=== PATIENT | female | born 1955 | race Caucasian/White ===

== ENCOUNTER → 2019-09-18 13:02 | Outpatient (CLI) | payer BC, SELFPAY ==
--- NOTE | 2019-09-18 13:11 | XR_ITS ---
PROCEDURE: XR KNEE LT 4V CLINICAL INDICATION: left knee pain COMPARISON: No exams were available for comparison FINDINGS: No fracture or dislocation. No lytic or blastic change. There is normal mineralization. There is minimal osteoarthritic change of the patellofemoral joint and medial compartment. No fracture or dislocation. No lytic or blastic change. Other findings:None. IMPRESSION: Mild osteoarthritis. Dictated by: Jcarlos Askew MD 09/18/2019 14:39 Electronically signed by Jcarlos Askew MD in [place] 09/18/2019 14:39
== END ==
PROVIDERS: PCP Family Medicine; Visit Provider Orthopaedic Surgery
DX: M25.562 Pain in left knee (principal)
CPT/HCPCS: 73564

== ENCOUNTER → 2022-05-16 12:40 | Outpatient (CLI) | payer MEDICARE, SELFPAY ==
--- NOTE | 2022-05-16 12:54 | XR_ITS ---
FINAL REPORT CLINICAL HISTORY: RT SIDED RIB PAIN UNDERNEATH OF BREAST FINDINGS: PA and lateral views of the chest were obtained. There is no prior exam for comparison. The cardiac and mediastinal silhouettes are within normal limits. The lungs are clear. There is no pleural effusion or pneumothorax. No acute osseous abnormality is identified. IMPRESSION: No radiographic evidence of acute cardiac or pulmonary disease. Reviewed, Interpreted and Dictated by Tegan Neves MD Transcribed by Tino Panda Authenticated and [facility]
--- NOTE | 2022-05-16 12:54 | XR_ITS ---
FINAL REPORT CLINICAL HISTORY: RT SIDED RIB PAIN UNDERNEATH OF BREAST FINDINGS: 2 views of the right ribs were obtained. There is no acute fracture. The visualized lungs are clear. No pneumothorax is identified. IMPRESSION: No rib fracture or pneumothorax identified. Reviewed, Interpreted and Dictated by Tegan Neves MD Transcribed by Tino Panda Authenticated and [facility]
== END ==
PROVIDERS: PCP Family Medicine; Visit Provider Family Medicine
DX: R07.81 Pleurodynia (principal)
CPT/HCPCS: 71046; 71100

== ENCOUNTER → 2022-08-19 12:33 | Outpatient (CLI) | payer MEDICARE, SELFPAY ==
--- NOTE | 2022-08-19 12:36 | MM_ITS ---
PROCEDURE INFORMATION: Exam: MG Bilateral Screening 3D Mammography Exam date and time: 08/19/2022 12:56 PM Age: 67 years old Clinical indication: Screening examination TECHNIQUE: Imaging protocol: Bilateral Screening tomosynthesis and 2D mammography including computer-aided detection (CAD) when performed. COMPARISON: No relevant prior studies available. FINDINGS: MAMMOGRAPHY: Breast composition: There are scattered areas of fibroglandular density. Mass: None. Architectural distortion: None. Calcifications: No suspicious calcifications. Asymmetric density: None. Skin thickening: None. Axillary adenopathy: None. IMPRESSION: No mammographic evidence of malignancy. Annual screening is recommended unless otherwise clinically indicated. ASSESSMENT: BI-RADS Category 1: Negative
== END ==
PROVIDERS: PCP Family Medicine; Visit Provider Family Medicine
DX: Z12.31 Encounter for screening mammogram for malignant neoplasm of breast (principal)
CPT/HCPCS: 77063; 77067

== ENCOUNTER 2022-09-28 09:00 | Outpatient (RCR) | payer MEDICARE, SELFPAY ==
--- NOTE | 2022-09-07 10:18 | HMH.PTOPEV ---
PT Outpatient Evaluation Rehab PT Outpatient Evaluation Start: 09/07/22 10:01 Freq: Status: Active Protocol: Document 09/07/22 10:01 AILYNNATE (Rec: 09/07/22 10:18 DENY [id number]) E-signed By Sukhwinder Claros, PT Outpatient Therapy Subjective History Subjective History Patient is a 67 year old female presenting to outpatient PT with reports of chronic LBP with intermittent RLE radicular symptoms of insidious onset starting approx 1.5 years ago. 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 Patient also reports L anterior hip/ groin pain with onset of RLE radicular symptoms. Most recent imaging indicates multi -level degenerative changes and bulging discs. Comorbidities include HTN. Chief Complaint Pain,Stiff Symptom Type Sharp,Shooting Symptoms Relieved By Ice,Prescription Meds Symptoms Aggravated By Standing,Bending/Stooping, Physical Activity,Twisting, Walking,Lifting Prior Functional Limitations None Current Functional Limitations Lifting,Housework,Driving, Sleeping,Standing,Sitting, Walking,Bending/Stooping Symptom Description Intermittent Level of pain today (0-10) 2 Pain scale - at its best (0-10) 0 Pain scale - at its worst (0-10) 5 Lumbopelvic Eval Posture Thoracic Spine Posture Standing Position Increased Kyphosis Lumbar Spine Posture Standing Position Increased Lordosis Assistive device Assistive Devices None / NA Palapation tenderness left Lumbar/Sacral Palpation Findings Tenderness Lumbar/Sacral Palpation Overall Comment L PSIS, upper gluteal mm 3/4 Accessory Movement L3 bilateral L4 bilateral L5 bilateral S1 bilateral Range of Motion Lumbar Spine Active Flexion Range of WNL Motion (degrees) Lumbar Spine Active Extension Range of 14 Motion (degrees) Left Lumbar Spine Lateral Flexion Active 13 Range of Motion (degrees) Right Lumbar Spine Lateral Flexion 16 pain Active Range of Motion (degrees) Lumbar Spine ROM Limitations Soft Tissue Tightness,Bony Restriction Manual Muscle Test Bilateral Knee Extension Strength Grade 5 Normal
== END 2022-09-28 09:05 | disposition home or self-care (01) ==
LOC: PT 09:00
PROVIDERS: PCP Family Medicine; Visit Provider Family Medicine
DX: M54.50 Low back pain, unspecified (principal)
CPT/HCPCS: 97110; 97163

== ENCOUNTER → 2022-10-05 08:56 | Outpatient (POV) | payer MEDICARE, SELFPAY ==
--- NOTE | 2022-10-05 09:01 | EXP.PAIN.OV ---
HPI Data of Consult Patient: new to practice Consult date: 10/05/22 Requesting Physician: Em Smith APRN Primary Care Provider: Jai Shannon MD Consult Narrative Reason for consult: Low back pain History of present illness: Ms. Holguin is a 67 year old female who presents today as a new patient. She is a referral from Dr. Bustos's office. Today she rates her pain a 5 out of 10. Patient states her pain is all in her low back and denies any radiating symptoms into her legs. She does describe this as a sharp sensation feels like it is [id number] rubbing. She states this has been going on for approximately a year and a half and is unrelated to any specific injury or trauma. She states that she was giving her dog a bath when she initially felt her symptoms. Patient has been to multiple sessions of physical therapy with minimal improvement. She does state that she continues to do at home exercising and stretching techniques that she learned in PT since. Patient does also see a chiropractor regularly with some improvement. Patient denies any previous back surgery or injective history. Patient has been prescribed Flexeril 10 mg at bedtime by her primary care doctor and she does state this helps some. Patient also takes [id number] Aleve and does ice daily. Patient has tried Salonpas patches with no additional change. Patient does state it is difficult to perform activities of daily living such as cooking and cleaning due to the pain. She also has difficulty even wiping when going to the restroom and also uses a wedge pillow to help with sleeping due to the pain. Patient is not on any scheduled medications. Her Lex is [id number]. Has been reviewed and appropriate. CC: Em Smith APRN [facility] Disclaimer: The information contained in this section may have been updated after the patient was seen, as this information can be updated by other users. Social History Smoking Status: Current every day smoker alcohol intake: never current occupational status: employed Travel in the last 8 weeks: None Review of Systems Review of Systems Review of systems:: pertinent systems reviewed and negative unless documented below Review of systems (narrative): Review of Systems: General: No recent weight changes, no fever, no sleep disturbances Respiratory: No cough, no shortness of air, no recurring pulmonary infections Cardiovascular/peripheral vascular: No chest pain, no palpitations, no edema, no shortness of breath Gastrointestinal: No new onset incontinence, normal bowel movements reported Genitourinary: No new onset incontinence Musculoskeletal: Lumbar Psychiatric: [Normal mood/affect] Neurological: [Denies weakness in extremities], [denies balance issues] Meds Home Medications and Allergies Home Medications Medication Instructions Recorded Confirmed Type No Known Home Medications 09/18/19 10/09/19 History New Prescriptions to Start Prescriptions: Allergies Allergy/AdvReac Type Severity Reaction Status Date / Time Penicillins Allergy Verified 10/09/19 13:14 Objective Narrative: Physical Exam: General: Alert and oriented x3, no acute distress, pleasant and cooperative Lungs: Respirations even and unlabored, symmetrical chest expansion Eyes: PERRL Musculoskeletal: Flexion and extension of lumbar [spine] somewhat guarded secondary to pain, [antalgic gait noted] positive Kemps test Neurological: Speech clear, no gross sensory deficit Oswestry index score of 25 Additional findings Additional findings: Proscan imaging 07/06/2022 MRI lumbar spine without contrast Findings: Disc desiccation, osteophytes and mild disc bulges are present at all visualized levels. There are prominent Schmorl's nodes in the superior endplates of L3 and L4 to the right of midline and mild contiguous marrow reaction. T11-T12: Mild kyphosis and a slight disc bulge are present. There is no significant spina
[2022-10-05 09:52] VITALS: BP 123/80; PULSE 102; RESP 18; TEMP 36.6; O2SAT 97; BMI 30.3
== END ==
PROVIDERS: PCP Family Medicine; Visit Provider Nurse Practitioner Family
DX: M51.36 Other intervertebral disc degeneration, lumbar region (principal); M47.816 Spondylosis without myelopathy or radiculopathy, lumbar region
CPT/HCPCS: 99202; G0463

== ENCOUNTER 2022-10-11 10:35 | Day surgery (SDC) | payer MEDICARE, SELFPAY ==
[2022-10-11 10:51] VITALS: BP 153/92; PULSE 99; RESP 18; TEMP 36.6; O2SAT 95; BMI 29.8
[2022-10-11 11:00] VITALS: BP 156/89; PULSE 106; RESP 19; O2SAT 94
[2022-10-11 11:01] VITALS: BP 156/89; PULSE 106; RESP 19; O2SAT 94
[2022-10-11 11:09] VITALS: BP 143/71; PULSE 89; RESP 18; O2SAT 95
--- NOTE | 2022-10-11 11:17 | P.PCN_ITS ---
Procedure Date: 10/11/22 Time: 11:00 Anesthesiologist:: Jabari Roque CRNA Complications:: None Pre-procedure Diagnosis:: Degenerative disc lumbar spine multilevels. Lumbar radiculopathy. Lumbar spondylosis. Multilevel lumbar facet arthropathy. Post-procedure Diagnosis:: Same. Indications for Procedure:: Patient is a very pleasant 67-year-old female that comes our clinic today for a bilateral L4-5, L5-S1 facet block/medial branch block. Patient complains of low back pain for the past 15 months. She rates her pain 6/10. She describes her low back pain is constant, dull, aching. Sitting or standing for any length of time is difficult due to low back and bilateral posterior hip pain. Procedure Details:: Informed consent was obtained and the risk and benefits of the procedure was explained to the patient. Patient was taken to the procedure room where noninvasive monitors were placed, including noninvasive blood pressure cuff as well as pulse oximeter. The area over the lumbar spine was cleansed using chlorhexidine as a cleansing solution. I anesthetized the skin and subcutaneous tissues with 1% Lidocaine. I placed 22-gauge spinal needles into the facet joint/ medial branches of L4-L5, and L5-S1 bilaterally. Needle placement was confirmed with fluoroscopy. After confirmation of needle placement, each site was injected with 1 mL of 1% lidocaine and 0.25 % Marcaine and 10 mg of Depo- Medrol. A total of 80 mg of depo medrol was used for bilateral medial branch blocks of L4-L5, and L5-S1 bilaterally. Patient tolerated the procedure without difficulty. There were no complications. Plan and Disposition:: Patient was discharged without incident.
== END 2022-10-11 11:09 | disposition home or self-care (01) ==
LOC: SC.PAINP 10:36
PROVIDERS: PCP Family Medicine; Visit Provider Nurse Anesthetist, Certified Registered
DX: M51.16 Intervertebral disc disorders with radiculopathy, lumbar region (principal); M47.896 Other spondylosis, lumbar region
CPT/HCPCS: 64493; 64494; J1040

== ENCOUNTER → 2022-10-26 13:01 | Outpatient (POV) | payer MEDICARE, SELFPAY ==
--- NOTE | 2022-10-26 13:23 | P.PCN_ITS ---
Procedure Anesthesiologist:: Em Smith APRN Complications:: None
--- NOTE | 2022-10-26 13:23 | EXP.PAIN.PRO ---
Procedure Anesthesiologist:: Em Smith APRN Complications:: None
--- NOTE | 2022-10-26 13:23 | EXP.PAIN.SOA ---
[facility] Pain Management SOAP Note Subjective:: Patient is a pleasant 67-year-old female who presents today for follow-up of lumbar medial branch block bilaterally L4-L5 and L5-S1 on 10/11/2022. We are currently treating the patient for degenerative disc disease of lumbar spine with lumbar radiculopathy symptoms, lumbar facet arthropathy, lumbar spondylosis. Today she rates her pain a 3 out of 10. She states she has had at least 50 to 60% improvement following this injection and feels like it is still providing additional relief. Patient does state that she has been able to move around easier with decreased pain and that she has not even had to use her pillow for positioning at night. Patient states that the pain is no longer a constant sensation and just comes and got worse. Patient is prescribed Flexeril 10 mg at night from her primary care doctor. Her Lex is [id number]. Its been reviewed and appropriate. Review of Systems: General: No recent weight changes, no fever, no sleep disturbances Respiratory: No cough, no shortness of air, no recurring pulmonary infections Cardiovascular/peripheral vascular: No chest pain, no palpitations, no edema, no shortness of breath Gastrointestinal: No new onset incontinence, normal bowel movements reported Genitourinary: No new onset incontinence Musculoskeletal: Low back pain Psychiatric: [Normal mood/affect] Neurological: [Denies weakness in extremities], [denies balance issues] Objective:: Physical Exam: General: Alert and oriented x3, no acute distress, pleasant and cooperative Lungs: Respirations even and unlabored, symmetrical chest expansion Eyes: PERRL Musculoskeletal: Flexion and extension of lumbar [spine] somewhat guarded secondary to pain, [antalgic gait noted] Neurological: Speech clear, no gross sensory deficit Assessment:: Degenerative disc disease of lumbar spine with lumbar radiculopathy symptoms, lumbar facet arthropathy, lumbar spondylosis Plan:: Patient has had significant improvement of her low back pain following her lumbar medial branch block and does not require any additional injective therapy at this time. Patient will return to clinic in 1 month for reevaluation of symptoms and plan of care. Patient has been instructed to contact the clinic with any concerns before the next appointment. Dr. Kaiser has reviewed this note and agrees with this plan of care. This note was dictated using voice recognition software and make contain errors or omissions. [facility] Disclaimer: The information contained in this section may have been updated after the patient was seen, as this information can be updated by other users. Medical History Chronic back pain HTN (hypertension) Surgical History H/O section H/O colonoscopy H/O tubal ligation Hx of tonsillectomy Family History Other Cancer Hypertension Social History Smoking Status: Current every day smoker alcohol intake: never current occupational status: employed Travel in the last 8 weeks: None
[2022-10-26 15:00] VITALS: BP 123/87; PULSE 102; RESP 20; BMI 29.8
== END | disposition home or self-care (01) ==
PROVIDERS: PCP Family Medicine; Visit Provider Nurse Practitioner Family
DX: M51.16 Intervertebral disc disorders with radiculopathy, lumbar region (principal); M47.26 Other spondylosis with radiculopathy, lumbar region
CPT/HCPCS: 99212; G0463

== ENCOUNTER → 2022-11-28 09:13 | Outpatient (POV) | payer MEDICARE, SELFPAY ==
--- NOTE | 2022-11-28 09:49 | EXP.PAIN.SOA ---
[facility] Pain Management SOAP Note Subjective:: Patient is a pleasant 67-year-old female who presents today for 1 month follow-up. We are currently treating the patient for degenerative disc disease of the lumbar spine with lumbar radiculopathy symptoms, lumbar facet arthropathy, lumbar spondylosis. Today she rates her pain a 8 out of 10. Patient denies any new trauma or injury. Patient denies any change location or type of pain she experiences. Patient does feel like over the last week her previous injection from back in September has started to wear off more. She states she is experiencing worsening pain symptoms on a regular basis that does interfere with her ability perform activities of daily living such as cooking and cleaning. Patient does describe this as a aching, throbbing sensation that is worse with increased activity such as bending, lifting or twisting. Previously when she had her first medial branch block she did have approximately 60% improvement or more lasting almost a month and a half. Patient is currently using Flexeril 10 mg at night from her primary care doctor as needed. Her Lex is [id number]. Its been reviewed and appropriate. Review of Systems: General: No recent weight changes, no fever, no sleep disturbances Respiratory: No cough, no shortness of air, no recurring pulmonary infections Cardiovascular/peripheral vascular: No chest pain, no palpitations, no edema, no shortness of breath Gastrointestinal: No new onset incontinence, normal bowel movements reported Genitourinary: No new onset incontinence Musculoskeletal: Low back pain Psychiatric: [Normal mood/affect] Neurological: [Denies weakness in extremities], [denies balance issues] Objective:: Physical Exam: General: Alert and oriented x3, no acute distress, pleasant and cooperative Lungs: Respirations even and unlabored, symmetrical chest expansion Eyes: PERRL Musculoskeletal: Flexion and extension of lumbar [spine] somewhat guarded secondary to pain, [antalgic gait noted] positive Kemps sign Neurological: Speech clear, no gross sensory deficit Assessment:: Degenerative disc disease of lumbar spine with lumbar radiculopathy symptoms, lumbar facet arthropathy, lumbar spondylosis Plan:: Patient is experiencing worsening pain in her low back with limited range of motion. Patient previously had a lumbar medial branch block that provided 60% improvement lasting almost a month and a half. I have discussed with the patient that she may benefit from a second lumbar medial branch block. Risk and benefits were discussed with the patient and she would like to proceed forward with this plan of care. Patient is not on any blood thinners. I will also send in Flexeril 10 mg's and provide a 1 month supply of this medication. Patient will be scheduled for a lumbar medial branch block bilaterally L4-L5 and L5-S1. Patient has been instructed to contact the clinic with any concerns before the next appointment. Dr. Kaiser has reviewed this note and agrees with this plan of care. This note was dictated using voice recognition software and make contain errors or omissions. [facility] Disclaimer: The information contained in this section may have been updated after the patient was seen, as this information can be updated by other users. Medical History Chronic back pain HTN (hypertension) Surgical History H/O section H/O colonoscopy H/O tubal ligation Hx of tonsillectomy Family History Other Cancer Hypertension Social History Smoking Status: Current every day smoker alcohol intake: never current occupational status: other Travel in the last 8 weeks: None
[2022-11-28 09:59] VITALS: BP 145/92; PULSE 89; RESP 18; O2SAT 97; BMI 29.8
== END | disposition home or self-care (01) ==
PROVIDERS: PCP Family Medicine; Visit Provider Nurse Practitioner Family
DX: M51.16 Intervertebral disc disorders with radiculopathy, lumbar region (principal); M47.26 Other spondylosis with radiculopathy, lumbar region
CPT/HCPCS: 99212; G0463

== ENCOUNTER 2022-12-06 10:04 | Day surgery (SDC) | payer MEDICARE, SELFPAY ==
[2022-12-06 10:25] VITALS: BP 135/85; PULSE 85; RESP 16; TEMP 36.6; O2SAT 93; BMI 30.7
[2022-12-06 10:37] VITALS: BP 140/87; PULSE 86; RESP 18; O2SAT 97; O2SAT 98
[2022-12-06 10:40] VITALS: BP 159/86; PULSE 78; RESP 18; O2SAT 94
--- NOTE | 2022-12-06 10:40 | P.PCN_ITS ---
Procedure Date: 12/06/22 Time: 10:20 Anesthesiologist:: Jabari Roque CRNA Complications:: None Pre-procedure Diagnosis:: Degenerative disc lumbar spine multilevels. Lumbar radiculopathy. Lumbar spondylosis. Multilevel lumbar facet arthropathy. Post-procedure Diagnosis:: Same. Indications for Procedure:: Patient is a very pleasant 67-year-old female comes today for a repeat L4-5, L5- S1 bilateral medial branch blocks/facet injections. Patient reports 3 to 4 weeks of moderate significant improvement terms of her overall low back pain with her first round of injections at the same levels. Patient states she has difficulty with standing for any length of time. Difficulty with flexion, extension, left and right rotation. She rates her pain 7/10. Procedure Details:: Informed consent was obtained and the risk and benefits of the procedure was explained to the patient. Patient was taken to the procedure room where noninvasive monitors were placed, including noninvasive blood pressure cuff as well as pulse oximeter. The area over the lumbar spine was cleansed using chlorhexidine as a cleansing solution. I anesthetized the skin and subcutaneous tissues with 1% Lidocaine. I placed 22-gauge spinal needles into the facet joint/ medial branches of L4-L5, and L5-S1] bilaterally. Needle placement was confirmed with fluoroscopy. After confirmation of needle placement, each site was injected with 1 mL of 1% lidocaine and 0.25 % Marcaine and 10 mg of Depo- Medrol. A total of 80 mg of depo medrol was used for bilateral medial branch blocks of L4-L5, and L5-S1] bilaterally. Patient tolerated the procedure without difficulty. There were no complications. Plan and Disposition:: Patient was discharged without incident.
== END 2022-12-06 10:40 | disposition home or self-care (01) ==
PROVIDERS: PCP Family Medicine; Visit Provider Nurse Anesthetist, Certified Registered
DX: M47.896 Other spondylosis, lumbar region (principal); M51.16 Intervertebral disc disorders with radiculopathy, lumbar region
CPT/HCPCS: 64493; 64494; J1040

== ENCOUNTER → 2023-05-08 09:53 | Outpatient (POV) | payer MEDICARE, SELFPAY ==
[2023-05-08 10:23] VITALS: BP 151/93; PULSE 107; RESP 18; O2SAT 94; BMI 30.7
--- NOTE | 2023-05-08 10:23 | EXP.PAIN.SOA ---
[facility] Pain Management SOAP Note Subjective:: Patient is a pleasant 68-year-old female who presents today for follow-up. We are currently treating the patient for degenerative disc disease of lumbar spine with lumbar radiculopathy symptoms, lumbar facet arthropathy, lumbar spondylosis. Today she rates her pain an 8 out of 10. Patient denies any new trauma or injury. Patient has had 2 diagnostic lumbar medial branch blocks that with her first injection provided 60% improvement lasting approximately a month and a half. Patient did get approximately 65 to 70% with the second block lasting approximately 1 month. Patient does state that she is back to her baseline today and describes it as an aching, throbbing sensation that is worse with certain movements such as bending twisting or lifting. Patient is interested in proceeding forward with the lumbar RFA however this had to be put on hold over the last few months because she ended up having eye surgery and her was hospitalized. Patient does state today that she would like to proceed forward. Patient states her pain does interfere with her ability perform activities of daily living such as cooking and cleaning. Patient has tried and failed conservative treatment such as oral medications, heat and ice, topicals, at home exercising and stretching for longer than 12 weeks. Patient is currently managed with Flexeril 10 mg at night by her PCP. Her Lex has been reviewed and is appropriate. Review of Systems: General: No recent weight changes, no fever, no sleep disturbances Respiratory: No cough, no shortness of air, no recurring pulmonary infections Cardiovascular/peripheral vascular: No chest pain, no palpitations, no edema, no shortness of breath Gastrointestinal: No new onset incontinence, normal bowel movements reported Genitourinary: No new onset incontinence Musculoskeletal: Low back pain Psychiatric: [Normal mood/affect] Neurological: [Denies weakness in extremities], [denies balance issues] Objective:: Physical Exam: General: Alert and oriented x3, no acute distress, pleasant and cooperative Lungs: Respirations even and unlabored, symmetrical chest expansion Eyes: PERRL Musculoskeletal: Flexion and extension of lumbar [spine] somewhat guarded secondary to pain, [antalgic gait noted] positive Kemps test Neurological: Speech clear, no gross sensory deficit Assessment:: Degenerative disc disease of lumbar spine with lumbar radiculopathy symptoms, lumbar spondylosis, multilevel lumbar facet arthropathy Plan:: Patient is experiencing worsening pain in her low back with limited range of motion and a positive Kemps test. I have discussed the risk and benefits of the lumbar RFA. Patient would like to proceed forward with this plan of care. Patient is not on any blood thinners. Patient did have 2 successful lumbar medial branch blocks with 60% the first injection and 65 to 70% with the second block lasting approximately a month to a month and a half with each 1. Patient will be scheduled for a lumbar RFA bilaterally L4-L5 and L5-S1. This injection will be done under fluoroscopic guidance to confirm accuracy and safety. Patient has been instructed to contact the clinic with any concerns before the next appointment. Dr. Kaiser has reviewed this note and agrees with this plan of care. This note was dictated using voice recognition software and make contain errors or omissions. [facility] Disclaimer: The information contained in this section may have been updated after the patient was seen, as this information can be updated by other users. Medical History Chronic back pain HTN (hypertension) Surgical History H/O section H/O colonoscopy H/O tubal ligation Hx of tonsillectomy Family History Other Cancer Hypertension Social History Smoking Status: Current every day smoker alcohol intake: never current occupational status: other Travel in the last 8 weeks: None
== END ==
LOC: SC.PAIN 09:54
PROVIDERS: PCP Family Medicine; Visit Provider Nurse Practitioner Family
DX: M51.16 Intervertebral disc disorders with radiculopathy, lumbar region (principal); M47.26 Other spondylosis with radiculopathy, lumbar region
CPT/HCPCS: 99212; G0463

== ENCOUNTER 2023-05-23 08:44 | Day surgery (SDC) | payer MEDICARE, SELFPAY ==
[2023-05-23 08:55] VITALS: BP 166/89; PULSE 104; RESP 16; TEMP 36.5; O2SAT 97; BMI 30.7
[2023-05-23] MEDS: BUPIVACAINE 0.25% 10ML INJ 25 MG IJ (09:15)
[2023-05-23] MEDS: LIDOCAINE 1% 5ML PF VIAL 15 ML (09:16)
[2023-05-23 09:20] VITALS: BP 139/82; PULSE 94; RESP 18; O2SAT 96
[2023-05-23] MEDS: methylPREDNISolone ACETATE 80MG/ML VIAL 80 MG (09:20)
[2023-05-23 09:23] VITALS: BP 152/101; PULSE 97; RESP 16; O2SAT 97
--- NOTE | 2023-05-23 09:25 | P.PCN_ITS ---
Procedure Date: 05/23/23 Time: 09:00 Anesthesiologist:: Jabari Roque CRNA Complications:: None Pre-procedure Diagnosis:: Degenerative disc lumbar spine multilevels. Lumbar radiculopathy. Lumbar facet arthropathy. Lumbar spondylosis. Post-procedure Diagnosis:: Same. Indications for Procedure:: Patient is a very pleasant 68-year-old female who presents today for radiofrequency ablation lumbar L4-5, L5-S1 bilaterally. Patient responded very well to nerve blocks at the same levels x 2. Patient reports difficulty with standing for any length of time. Difficulty sitting for any length of time. Difficulty transitioning from sitting to standing. Difficulty with flexion, extension, left and right rotation. She rates her pain 8/10. Procedure Details:: Informed consent was obtained and the risk and benefits of the procedure was exp lained to the patient. Patient was placed prone on the procedure table. The patient was prepped and draped in sterile fashion. C-arm fluoroscopy was used to view the lumbar spine. The skin and subcutaneous tissues were anesthetized using lidocaine. I placed 20-gauge RF needles into the facet joints of L3-L4, L4-L5 and L5-S1 on the left side. We underwent sensory stimulation. There is good sensory stimulation at 0.8 V. We underwent motor stimulation. There is no motor stimulation at 2 V. We then anesthetized these levels with lidocaine and Depo- Medrol. I used a total of 40 mg Depo-Medrol for all 3 levels. I then burned all 3 levels of L3-L4, L4-5 and L5-S1 on the left side for 4 minutes at 80 ?C. This process was then repeated on the right side. Patient tolerated the procedure well with no complication. Plan and Disposition:: Patient was discharged without incident.
[2023-05-23 09:27] VITALS: BP 139/82; PULSE 94; RESP 18; O2SAT 96
== END 2023-05-23 09:23 | disposition home or self-care (01) ==
PROVIDERS: PCP Family Medicine; Visit Provider Nurse Anesthetist, Certified Registered
DX: M51.16 Intervertebral disc disorders with radiculopathy, lumbar region (principal); M47.816 Spondylosis without myelopathy or radiculopathy, lumbar region
CPT/HCPCS: 64635; 64636; J1040

== ENCOUNTER → 2023-06-09 09:42 | Outpatient (POV) | payer MEDICARE, SELFPAY ==
[2023-06-09 12:31] VITALS: RESP 18; BMI 30.4
--- NOTE | 2023-06-09 12:38 | A.OFFVIS_ITS ---
[facility] Pain Management SOAP Note Subjective:: Patient is a pleasant 68-year-old female who presents today for follow-up of lumbar RFA on 05/23/2023. We are currently treating the patient for degenerative disc disease of lumbar spine with lumbar radiculopathy symptoms, lumbar facet arthropathy, lumbar spondylosis. Today she rates her pain a 7 out of 10. Patient states that she only had improvement for a couple of days and then her pain went back to its baseline. Patient does state her pain continues to be there in her low back in 1 specific spot along the left side. Patient states the pain can send sharp shooting pains and that it is worse with certain movements such as bending twisting or lifting. Patient did have 2 successful blocks with each 1 lasting over a month to a month and then a half and providing upwards of 60 to 70% relief. Patient states that she did have imaging done previously at [facility] at [place]. Patient has tried and failed conservative treatment such as oral medication, heat and ice, topicals, at home exercising and stretching for longer than 12 weeks. Patient is currently prescribed Flexeril 10 mg at night from her primary care provider. Her Lex has been reviewed and is appropriate. Review of Systems: General: No recent weight changes, no fever, no sleep disturbances Respiratory: No cough, no shortness of air, no recurring pulmonary infections Cardiovascular/peripheral vascular: No chest pain, no palpitations, no edema, no shortness of breath Gastrointestinal: No new onset incontinence, normal bowel movements reported Genitourinary: No new onset incontinence Musculoskeletal: Low back pain Psychiatric: [Normal mood/affect] Neurological: [Denies weakness in extremities], [denies balance issues] Objective:: Physical Exam: General: Alert and oriented x3, no acute distress, pleasant and cooperative Lungs: Respirations even and unlabored, symmetrical chest expansion Eyes: PERRL Musculoskeletal: Flexion and extension of lumbar [spine] somewhat guarded secondary to pain, [antalgic gait noted] positive Kemps test Neurological: Speech clear, no gross sensory deficit [facility] 07/06/2022 Lumbar MRI without contrast Findings: Disc desiccation, osteophytes, mild disc bulges are present at all visualized levels. There are prominent Schmorl's nodes in the superior endplates of L3 and L4 to the right of midline with mild continuous marrow reaction T11-12: Mild kyphosis and a slight disc bulge present T12-L1: Slight disc bulge without spinal stenosis or neuroforaminal encroachment L1-2: Disc bulge present without significant stenosis or neuroforaminal encroachment L2-3: Mild disc bulge present without spinal stenosis or neuroforaminal encroachment L3-4: Mild disc bulge with mild facet hypertrophy present. Mild narrowing of the thecal sac and superior right subarticular zone. No significant neuroforaminal encroachment L4-5: Mild disc bulge with mild facet hypertrophy present. Mild narrowing of the neural foramina, thecal sac and superior subarticular zones L5-S1: Severe disc space narrowing, mild retrolisthesis, Modic 1 fibrovascular endplate changes, mild vacuum phenomenon in the disc, anterior annular fissure, mild disc bulge, mild facet hypertrophy are present. Mild to moderate bilateral neuroforaminal narrowing without central canal stenosis. There is irregular somewhat linear decreased signal in the anterior inferior aspect of the L5 vertebral body which may be related to an old fracture line. Similar but more subtle changes are present in the anterior superior aspect of S1 Assessment:: Degenerative disc disease of lumbar spine with lumbar radiculopathy symptoms, lumbar facet arthropathy, lumbar spondylosis Plan:: Patient continues to experience significant pain in her low back. I have discussed with the patient that I will reach out to [facility] in [place] and see if we can get a copy of her imaging. I will order the patient a compounded cream we will plan on seeing her back in 2 weeks. Patient may be a beneficial candidate of a future Intracept procedure. Patient will return to clinic in 2 weeks for reevaluation of symptoms and plan of care. Patient has been instructed to contact the clinic with any concerns before the next appointment. Dr. Kaiser has reviewed this note and agrees with this plan of care. This note was dictated using voice recognition software and make contain errors or omissions. [facility] Disclaimer: The information contained in this section may have been updated after the patient was seen, as this information can be updated by other users. Medical History Chronic back pain HTN (hypertension) Surgical History H/O section H/O colonoscopy H/O tubal ligation Hx of tonsillectomy Family History Other Cancer Hypertension Social History Smoking Status: Current every day smoker alcohol intake: never current occupational status: retired Travel in the last 8 weeks: None
== END ==
LOC: SC.PAIN 09:43
PROVIDERS: PCP Family Medicine; Visit Provider Nurse Practitioner Family
DX: M51.16 Intervertebral disc disorders with radiculopathy, lumbar region (principal); M47.26 Other spondylosis with radiculopathy, lumbar region
CPT/HCPCS: 99212; G0463

== ENCOUNTER → 2023-06-22 10:28 | Outpatient (POV) | payer MEDICARE, SELFPAY ==
--- NOTE | 2023-06-22 12:35 | EXP.PAIN.SOA ---
[facility] Pain Management SOAP Note Subjective:: Patient is a pleasant 68-year-old female who presents today for follow-up. We are currently treating the patient for degenerative disc disease of lumbar spine with lumbar facet arthropathy, lumbar spondylosis. Today she rates her pain a 7 out of 10. Patient denies any new trauma or injury. She states she continues to have pain there at her low back without any radiating symptoms into her legs. Patient did previously have 2 successful lumbar medial branch blocks with them lasting upwards of 60 to 70% relief ranging from a month to a month and a half improvement. Patient did have her lumbar RFA back at the end of April however it did not provide significant relief. Patient continues to state that this pain interferes with her ability perform activities of daily living such as cooking and cleaning. At her last visit we did send her a compounded cream. She states that this is helping. Her Lex has been reviewed and is appropriate. Review of Systems: General: No recent weight changes, no fever, no sleep disturbances Respiratory: No cough, no shortness of air, no recurring pulmonary infections Cardiovascular/peripheral vascular: No chest pain, no palpitations, no edema, no shortness of breath Gastrointestinal: No new onset incontinence, normal bowel movements reported Genitourinary: No new onset incontinence Musculoskeletal: Low back pain Psychiatric: [Normal mood/affect] Neurological: [Denies weakness in extremities], [denies balance issues] Objective:: Physical Exam: General: Alert and oriented x3, no acute distress, pleasant and cooperative Lungs: Respirations even and unlabored, symmetrical chest expansion Eyes: PERRL Musculoskeletal: Flexion and extension of lumbar [spine] somewhat guarded secondary to pain, [antalgic gait noted] positive Kemps test Neurological: Speech clear, no gross sensory deficit Assessment:: Degenerative disc disease of lumbar spine with lumbar facet arthropathy, lumbar spondylosis Plan:: Patient continues to experience significant pain in her low back with limited range of motion and a positive Kemps test. I have discussed with the patient that she may be a beneficial candidate of the Intracept procedure which does do an ablation to the basal vertebral nerve. I have counseled the patient that I will reach out to the underwriting sales representative for this company to get a brochure for her for her next visit and I will discuss with Dr. Kaiser regarding when that we will start doing this procedure here at the [place] location. Patient does state that she would prefer it to be done here at this hospital. Patient will return to clinic in 1 month for reevaluation of symptoms and plan of care. Patient has been instructed to contact the clinic with any concerns before the next appointment. Dr. Kaiser has reviewed this note and agrees with this plan of care. This note was dictated using voice recognition software and make contain errors or omissions. [facility] Disclaimer: The information contained in this section may have been updated after the patient was seen, as this information can be updated by other users. Medical History Chronic back pain HTN (hypertension) Surgical History H/O section H/O colonoscopy H/O tubal ligation Hx of tonsillectomy Family History Other Cancer Hypertension Social History Smoking Status: Current every day smoker alcohol intake: never current occupational status: retired Travel in the last 8 weeks: None
[2023-06-22 12:38] VITALS: BP 150/85; PULSE 116; RESP 18; O2SAT 95; BMI 29.7
== END ==
LOC: SC.PAIN 10:28
PROVIDERS: PCP Family Medicine; Visit Provider Nurse Practitioner Family
DX: M51.36 Other intervertebral disc degeneration, lumbar region (principal); M47.816 Spondylosis without myelopathy or radiculopathy, lumbar region
CPT/HCPCS: 99212; G0463

== ENCOUNTER 2023-07-13 08:38 | Outpatient (CLI) | payer MEDICARE, SELFPAY ==
--- NOTE | 2023-07-13 | CA_ITS ---
APPROVED REPORT EXAM: Comprehensive 2D, Doppler, and color-flow Echocardiogram Custom Ski Maker: Heather Aguilar CRT Ht: 5 ft 6 in Wt: 190lbs BSA: 1.96 BP: 130/80 mmHg Indications: Murmur, Hypertension/HDD, Smoker 2D Dimensions LA Volume 49.80 mL LA Volume Index 24.90 mL/m2 (M/F) 16-34 M-Mode Dimensions RVDd 2.91 cm (0.9-2.6) LA Diam 3.40 cm (1.9-4.0) LVDd 4.21 cm (3.5-5.7) LVDs 3.08 cm (3.5-5.7) IVSd 1.84 cm (0.6-1.1) PWd 0.60 cm (0.6-1.1) EF (Teich) 52.80% FS 26.80% EDV (Teich) 79.00 mL TAPSE 1.57 (<1.7) ESV (Teich) 37.30 mL LV Diastology E Decel Time 123 (160-240 msec) E/A Ratio 0.61 MED A' 13.10 cm/s LAT A' 14.10 cm/s Aortic Valve AO Peak GR. 9.30 mmHg Mitral Valve MV A Velocity 113.0 (40-130 cm/s) E/A Ratio 0.61 Pulmonary Valve PV Peak Velocity 161.0 (50-150 cm/s) Tricuspid Valve TR P. Velocity 174.00 cm/s RAP Estimate 10.00 mmHg RVSP 22.20 mmHg Left Ventricle The left ventricle is normal size. The left ventricular systolic function is normal. The left ventricular ejection fraction is within the normal range. There is increased LV wall thickness. There is normal LV segmental wall motion. Transmitral Doppler flow pattern suggests impaired LV relaxation. LVEF is 55%. Right Ventricle The right ventricle is normal size. The right ventricular systolic function is normal. Atria The left atrium size is normal. The right atrium size is normal. There is no Doppler evidence of interatrial shunt. Aortic Valve Aortic valve is mildly thickened. Trace aortic regurgitation. There is no aortic valvular stenosis. Mitral Valve The mitral valve is normal in structure. No evidence of mitral valve stenosis. Trace mitral regurgitation. Tricuspid Valve The tricuspid valve leaflets are thin and pliable. Trace tricuspid regurgitation. There is insufficient TR jet to estimate RVSP. Pulmonic Valve The pulmonary valve is grossly normal in structure. Trace pulmonic regurgitation. Great Vessels The aortic root is normal in size. There is mild dilation of the ascending aorta, measuring 3.9 cm in diameter. IVC is normal in size and collapses >50% with inspiration. Pericardium There is no pericardial effusion. Conclusion Normal biventricular systolic function. No significant valvular stenosis or regurgitation. There is mild dilation of the ascending aorta, measuring 3.9 cm in diameter. Electronically signed by : Olivia Ramirez MD 07/17/2023 11:10:06
--- NOTE | 2023-07-13 | CA_ITS ---
FINAL REPORT TECHNIQUE: Color Doppler, duplex Doppler and bailey scale sonography of the bilateral neck arterial vasculature was performed. Velocities were measured in the carotid arteries. Stenosis evaluation based on the validated velocity criteria. CLINICAL HISTORY: Smoker, HTN, Murmur FINDINGS: The peak systolic velocity of the right common carotid artery is 138 cm/s. The peak systolic velocity of the right internal carotid artery is 76 cm/s and end diastolic velocity 34 cm/s. The ICA/CCA ratio is 0.88. A small amount of plaque is present. The right external carotid artery is patent. The right vertebral artery is patent with antegrade flow. The peak systolic velocity of the left common carotid artery is 73 cm/s. The peak systolic velocity of the left internal carotid artery is 83 cm/s and end diastolic velocity 35 cm/s. The ICA/CCA ratio is 1.1. A small amount of plaque is present. The left external carotid artery is patent.The left vertebral artery is patent with antegrade flow. IMPRESSION: Less than 50% bilateral carotid stenoses. Bilateral patent vertebral arteries with antegrade flow. If indicated, CTA or MRA could further evaluate. Reviewed, Interpreted and Dictated by Remington Farooq III, MD Transcribed by Lilo Jones Authenticated and [facility]
== END 2023-07-13 23:59 ==
LOC: RT 08:39
PROVIDERS: PCP Family Medicine; Visit Provider Family Medicine
DX: R09.89 Other specified symptoms and signs involving the circulatory and respiratory systems (principal); I35.8 Other nonrheumatic aortic valve disorders; R01.1 Cardiac murmur, unspecified
CPT/HCPCS: 93306; 93880

== ENCOUNTER 2023-07-24 09:23 | Outpatient (POV) | payer MEDICARE, SELFPAY ==
[2023-07-24 09:31] VITALS: BP 129/86; PULSE 100; RESP 18; O2SAT 98; BMI 30.7
--- NOTE | 2023-07-24 09:48 | EXP.PAIN.SOA ---
[facility] Pain Management SOAP Note Subjective:: Patient is a pleasant 68-year-old female who presents today for 1 month follow-up. Today she rates her pain a 7 out of 10. Patient denies any new trauma or injury. Patient does states she continues to have pain there in her low back and denies any radiating symptoms into her legs. At our last visit we did discuss the Intracept procedure and she was interested possibly in this option. Patient states she continues to use her compounded cream however it does feel deeper and it only eases the pain down. Patient states that she still will have sudden sharp pains with certain positioning that does interfere with her ability perform activities of her daily living. Patient did have 2 successful lumbar medial branch blocks providing 60 to 70% relief and lasting a month to month and a half however the RFA in April did not do as well. Her Lex has been reviewed and is appropriate. Review of Systems: General: No recent weight changes, no fever, no sleep disturbances Respiratory: No cough, no shortness of air, no recurring pulmonary infections Cardiovascular/peripheral vascular: No chest pain, no palpitations, no edema, no shortness of breath Gastrointestinal: No new onset incontinence, normal bowel movements reported Genitourinary: No new onset incontinence Musculoskeletal: Low back pain Psychiatric: [Normal mood/affect] Neurological: [Denies weakness in extremities], [denies balance issues] Objective:: Physical Exam: General: Alert and oriented x3, no acute distress, pleasant and cooperative Lungs: Respirations even and unlabored, symmetrical chest expansion Eyes: PERRL Musculoskeletal: Flexion and extension of lumbar [spine] somewhat guarded secondary to pain, [antalgic gait noted] Neurological: Speech clear, no gross sensory deficit Assessment:: Degenerative disc disease of lumbar spine with lumbar facet arthropathy and lumbar spondylosis Plan:: I have counseled the patient that I have not gotten any updated information regarding the Intracept procedure. I will reach back out to insurance claims representative to get brochures regarding this option. I have also discussed with the patient that I will send in a month supply of Tylenol 3 twice a day as needed. Patient will return to clinic in 1 month for reevaluation of symptoms and plan of care. Risks and benefits of the medication have been explained in detail to the patient. The patient does understand the risk of dependence on the medication when given over a prolonged period. Patient has been advised of risks of oversedation with the prescribed medication. Narcan has been offered to the paitent in the event of oversedation. Patient has been advised that a family member should also be educated regarding administration of Narcan. The patient has been advised to consult with his/her primary care provider and pharmacist regarding drug-drug interaction of medications currently prescribed. Patient has been prescribed a controlled substance after being counseled on the medication, medication safety, and possible side effects. Opioid contract was reviewed and signed by the patient, and that they have agreed to all of the terms set forth by our compliance program. Patient has been instructed to contact the clinic with any concerns before the next appointment. Dr. Kaiser has reviewed this note and agrees with this plan of care. This note was dictated using voice recognition software and make contain errors or omissions. [facility] Disclaimer: The information contained in this section may have been updated after the patient was seen, as this information can be updated by other users. Medical History Chronic back pain HTN (hypertension) Surgical History H/O section H/O tubal ligation H/O colonoscopy Hx of tonsillectomy Family History Other Cancer Hypertension Social History Smoking Status: Current every day smoker alcohol intake: never current occupational status: other Travel in the last 8 weeks: None
== END 2023-07-24 23:59 | disposition home or self-care (01) ==
PROVIDERS: PCP Family Medicine; Visit Provider Nurse Practitioner Family
DX: M51.36 Other intervertebral disc degeneration, lumbar region (principal); M47.816 Spondylosis without myelopathy or radiculopathy, lumbar region
CPT/HCPCS: 99212; G0463

== ENCOUNTER 2023-08-17 10:25 | Outpatient (CLI) | payer MEDICARE, SELFPAY ==
[2023-08-17 11:25] LABS: Blood Urea Nitrogen 20 mg/dl (7-17); Estimated Glomerular Filt Rate 71 ml/min (>60); GFR (African American) 86 ML/MIN (>60)
== END 2023-08-17 23:59 | disposition home or self-care (01) ==
LOC: LAB 10:27
PROVIDERS: PCP Family Medicine; Visit Provider Family Medicine
DX: Z01.818 Encounter for other preprocedural examination (principal)
CPT/HCPCS: 36415; 82565; 84520

== ENCOUNTER 2023-08-21 09:08 | Outpatient (CLI) | payer MEDICARE, SELFPAY ==
--- NOTE | 2023-08-21 09:13 | CT_ITS ---
FINAL REPORT TECHNIQUE: Axial CT with contrast with 3-D MIP reconstruction CLINICAL HISTORY: AORTIC DILATION COMPARISON: None FINDINGS: Pulmonary vessels enhance in normal fashion without evidence of embolism. The thoracic aorta is at the upper limits of normal in size. The aortic sinus and mid ascending aorta measures 39 mm in diameter, while the descending aorta measures 26 mm in diameter. No pulmonary mass or infiltrate is present. Minimal dependent atelectasis is present. There is no significant pleural effusion. There is no significant pericardial effusion. No mediastinal or hilar adenopathy is present. There is fatty infiltration of the liver present. IMPRESSION: Thoracic aorta is at the upper limits of normal in size as described above. No dissection is seen. Fatty infiltration of the liver. Reviewed, Interpreted and Dictated by Jai Lima MD Transcribed by Nkechi Griffin Authenticated and [facility]
[2023-08-21] MEDS: 0.9 % SODIUM CHLORIDE 50 ML VIAL IV (09:47)
[2023-08-21] MEDS: SODIUM CHLORIDE 0.9% 10ML SYR (RAD ONLY) 10 ML IV (09:47)
[2023-08-21] MEDS: IOPAMIDOL-370 (76%);100ML BOTTLE 100 ML IV (09:47)
== END 2023-08-21 23:59 | disposition home or self-care (01) ==
LOC: RAD 09:08
PROVIDERS: PCP Family Medicine; Visit Provider Family Medicine
DX: I77.819 Aortic ectasia, unspecified site (principal)
CPT/HCPCS: 71275; Q9967

== ENCOUNTER 2023-08-23 09:09 | Outpatient (POV) | payer MEDICARE, SELFPAY ==
[2023-08-23 09:26] VITALS: BP 170/97; PULSE 91; RESP 16; O2SAT 98; BMI 30.7
--- NOTE | 2023-08-23 11:18 | EXP.PAIN.SOA ---
[facility] Pain Management SOAP Note Subjective:: Patient is a pleasant 68-year-old female who presents today for follow-up. Today she rates her pain an 8 out of 10. Patient denies any new trauma or injury. She states she continues to have chronic low back pain as well as her right hip. Patient states that she continues to go to the chiropractor however they have basically done as much as they could for this joint. Patient states that she feels like she is almost at a loss due to not having improvement with the lumbar RFA however continuing to spend money for visits without getting any additional relief. Patient states that she is not interested in a hip replacement or back surgery however she would like something that provides longer relief on a regular basis. Patient has been tried on compounded cream and Tylenol 3. Her Lex has been reviewed and is appropriate. Review of Systems: General: No recent weight changes, no fever, no sleep disturbances Respiratory: No cough, no shortness of air, no recurring pulmonary infections Cardiovascular/peripheral vascular: No chest pain, no palpitations, no edema, no shortness of breath Gastrointestinal: No new onset incontinence, normal bowel movements reported Genitourinary: No new onset incontinence Musculoskeletal: Low back pain, right hip pain Psychiatric: [Normal mood/affect] Neurological: [Denies weakness in extremities], [denies balance issues] Objective:: Physical Exam: General: Alert and oriented x3, no acute distress, pleasant and cooperative Lungs: Respirations even and unlabored, symmetrical chest expansion Eyes: PERRL Musculoskeletal: Flexion and extension of lumbar [spine] somewhat guarded secondary to pain, [antalgic gait noted] Neurological: Speech clear, no gross sensory deficit Assessment:: Degenerative disc disease of lumbar spine with lumbar facet arthropathy, lumbar spondylosis, right hip pain Plan:: I have discussed with the patient that she may benefit from a possible pain pump trial or spinal cord stimulator trial for more prolonged relief on a regular basis. Risk and benefits and educational handouts were given during today's visit. I did also review over risk and benefits of a right hip intra-articular injection. I have counseled her that she can call our office between now and her next visit if she wishes to proceed forward with a right hip intra-articular injection. I have also discussed with the patient that it may be beneficial to see an orthopedic provider for her right hip for possible intervention as well as a neurosurgeon just to see whether or not what recommendations they had. We will follow-up with this at future visits. Patient will contact us for her next follow-up. Patient has been instructed to contact the clinic with any concerns before the next appointment. Dr. Kaiser has reviewed this note and agrees with this plan of care. This note was dictated using voice recognition software and make contain errors or omissions. [facility] Disclaimer: The information contained in this section may have been updated after the patient was seen, as this information can be updated by other users. Medical History Chronic back pain HTN (hypertension) Surgical History H/O section H/O tubal ligation H/O colonoscopy Hx of tonsillectomy Family History Other Cancer Hypertension Social History Smoking Status: Current every day smoker alcohol intake: never current occupational status: other Travel in the last 8 weeks: None
== END 2023-08-23 23:59 | disposition home or self-care (01) ==
LOC: SC.PAIN 09:10
PROVIDERS: PCP Family Medicine; Visit Provider Nurse Practitioner Family
DX: M51.36 Other intervertebral disc degeneration, lumbar region (principal); M47.816 Spondylosis without myelopathy or radiculopathy, lumbar region; M25.551 Pain in right hip
CPT/HCPCS: 99212; G0463

== ENCOUNTER 2024-03-07 08:17 | Outpatient (CLI) | payer MEDICARE, SELFPAY ==
--- NOTE | 2024-03-07 08:36 | MM_ITS ---
PROCEDURE INFORMATION: Exam: MG Bilateral Screening 3D Mammography Exam date and time: 03/07/2024 8:22 AM Age: 68 years old Clinical indication: Screening mammogram TECHNIQUE: Imaging protocol: Bilateral Screening tomosynthesis and 2D mammography including computer-aided detection (CAD) when performed. COMPARISON: 08/19/2022 FINDINGS: MAMMOGRAPHY: Breast composition: There are scattered areas of fibroglandular density. Mass: None. Architectural distortion: No new or suspicious architectural distortion. Calcifications: Stable benign-appearing calcifications are present. No new or suspicious cluster of microcalcifications have developed. Asymmetric density: No new or suspicious asymmetric density is present Skin thickening: None. Axillary adenopathy: None. IMPRESSION: No mammographic evidence of malignancy. Recommend annual screening mammography unless otherwise clinically indicated. ASSESSMENT: BI-RADS category 2: Benign.
--- NOTE | 2024-03-07 08:36 | XR_ITS ---
FINAL REPORT TECHNIQUE: Bone mineral density was calculated of the lumbar spine and hip. CLINICAL HISTORY: .OSTEOPENIA COMPARISON: None FINDINGS: Using L1-4, the bone mineral density of the spine is 0.854 g/cm2, corresponding to T-score of -1.8. Using the left hip, the bone mineral density of the femoral neck is 0.740 g/cm2, corresponding to a T-score of -1.0. Using the right hip, the bone mineral density of the femoral neck is 0.737 g/cm?, corresponding to a T-score of -1.0. NOTE: T-score: Standard deviation compared with peak bone mass of young adult mean. *Following the recommendations of the International Society of Bone densitometry, classification of hip BMD is based on the lower of two T-scores; total hip or femoral neck. IMPRESSION: Diminished bone mineral density of the lumbar spine consistent with low bone density. Normal bone mineral density of the bilateral hips. Reviewed, Interpreted and Dictated by Remington Farooq III, MD Transcribed by Nkechi Griffin Authenticated and [facility]
== END 2024-03-07 23:59 | disposition home or self-care (01) ==
LOC: RAD 08:18
PROVIDERS: PCP Family Medicine; Visit Provider Family Medicine
DX: Z12.31 Encounter for screening mammogram for malignant neoplasm of breast (principal); M85.80 Other specified disorders of bone density and structure, unspecified site; N60.19 Diffuse cystic mastopathy of unspecified breast
CPT/HCPCS: 77063; 77067; 77080

== ENCOUNTER 2024-05-14 17:18 | Emergency (ER) | payer MEDICARE, SELFPAY ==
[2024-05-14 18:29] VITALS: BP 133/83; PULSE 98; RESP 18; TEMP 36.9; O2SAT 97; BMI 31.6
[2024-05-14] MEDS: TET/DIPHTH/PERT-ADULT 0.5ML SYRINGE 0.5 ML IM (18:40)
--- NOTE | 2024-05-14 18:59 | ED_ITS ---
Discharge Plan Disposition Patient Disposition: Home, Self-Care Condition: Good Prescriptions Prescriptions: New clindamycin HCl 300 mg capsule 300 mg PO Q8H 7 Days Qty: 21 0RF sulfamethoxazole-trimethoprim [Bactrim DS] 800-160 mg Tablet 1 tab PO BID 7 Days Qty: 14 0RF mupirocin 2 % ointment 1 applic topical TID 7 Days Qty: 15 0RF No Action Sutab 1.479-0.188- 0.225 gram tablet See Rx Instructions PO PER PKG DIR Qty: 24 0RF Rx Instructions: at 6pm the night before procedure, swallow 1 tablet every 1-2 minutes. you should finish 12 tablets and entire 16 oz of water within 20 minutes. IMPORTANT: If you experience pre-related symptoms ( nausea, bloating or cramping) pause and slow the rate of drinking additional water until symptoms diminish. approximately one hour after the last tablet, drink 16 oz of water over 30 mins. then repeat in 30 mins. lisinopril-hydrochlorothiazide 10-12.5 mg tablet 1 tab PO DIRECTED Referrals Follow up/Referrals: Luis Shannon MD [Primary Care Provider] - See instructions Activity Restrictions/Add. Instructions Additional Instructions/Restrictions: Keep the wounds clean and dry. Follow up with your regular doctor within the next 3 days for a wound recheck. Take the antibiotics as directed and apply the topical antibiotics as directed. Make sure you stay in contact with the health department regarding the health of the dog. Watch the wounds for signs of worsening infection, such as worsening redness, drainage, swelling, etc. GO TO THE ER FOR ANY WORSENING SYMPTOMS Clinical Impressions Clinical Impression: Dog bite of right lower leg Instructions Patient Instructions: Clindamycin, Mupirocin, DI for Dog Bite Print Language Print Language: Welsh Discharge ED Provider: Nasim Humphrey [facility] General Stated complaint: AO 1- dog bite Mode of Arrival: Ambulatory Source of Information: Patient Time Seen by Provider: 05/14/24 18:59 Description of Symptoms (Recalled from Triage Doc. by RN): RIGHT LOWER LEG DOG BITE HEENT Symptoms (Recalled from RN notes): No Resp Symptoms (Recalled from RN notes): No Skin Symptoms (Recalled from RN notes): Yes MS Symptoms (Recalled from RN notes): No Functional Status (Recalled from RN notes): WNL History of Present Illness Provider Complaint: She states that she was bit by her own dog at around 1100 this morning. She states that the dog did not mean to bite her. Another dog was trying to fight with her dog and her dog accidentally bit her. The dog's immunizations are all up to date. Her tetanus immunization is not up to date. Related Data Home Medications ?Medication ?Instructions ?Recorded ?Confirmed lisinopril 10 1 tab PO DIRECTED BLOOD PRESSURE 10/05/22 05/14/24 mg-hydrochlorothiazide 12.5 mg tablet Previous Rx's ?Medication ?Instructions ?Recorded sodium sul 1.479 gram-potas ch See Rx Instructions PO PER PKG DIR 05/07/24 0.188 gram-magnes sul 0.225 gram colonscopy #24 tabs tablet (Sutab) clindamycin HCl 300 mg capsule 300 mg PO Q8H 7 days #21 caps 05/14/24 mupirocin 2 % topical ointment 1 applic topical TID 7 days #15 05/14/24 grams sulfamethoxazole 800 1 tab PO BID 7 days #14 tabs 05/14/24 mg-trimethoprim 160 mg tablet (Bactrim DS) Allergies Allergy/AdvReac Type Severity Reaction Status Date / Time Penicillins Allergy Verified 12/06/22 10:29 Worker's Comp Is this a Worker's Comp case?: No [facility] Disclaimer: The information contained in this section may have been updated after the patient was seen, as this information can be updated by other users. Medical History (Updated 05/14/24 @ 19:10 by Nasim Humphrey APRN) Chronic back pain HTN (hypertension) Surgical History H/O section H/O tubal ligation H/O colonoscopy Hx of tonsillectomy Family History Other Cancer Hypertension Social History (Updated 05/13/24 @ 15:20 by Amanda Cadena RN) Smoking Status: Current every day smoker alcohol intake: never current occupational status: other Travel in the last 8 weeks: None Have you lived/traveled outside US in past 30 days?: No Contact w/someone who lives/traveled outside US past 30 days?: No Exposure to someone with infectious disease in past 14 days?: No Do you have a fever (greater than 100.4 F or 38 C)?: No Have you tested positive for COVID-19: No Exposed to someone with COVID-19 in past 14 days?: No Do you have a sore throat?: No Do you have a cough?: No Do you have any weakness?: No Do you have any diarrhea?: No Are you experiencing any unusual bleeding?: No Do you have any muscle aches/pain?: No Do you have any abdominal pain?: No Are you experiencing loss of taste or smell?: No ROS Obtained: Yes All systems reviewed & no additional complaints except as documented Constitutional Constitutional: Denies chills and Denies fever(s) Eyes Eyes: Denies eye discharge ENT Ears, Nose, Mouth, and Throat: Denies dizziness, Denies otalgia and Denies sore throat Cardiovascular Cardiovascular: Denies chest pain Respiratory Respiratory: Denies shortness of breath, Denies chest congestion, Denies cough, Denies stridor and Denies wheezing Gastrointestinal Gastrointestingal: Denies nausea or vomiting Musculoskeletal Musculoskeletal: Reports system reviewed and no additional complaints, except as documented and Denies arthralgias Integumentary/Breasts Skin/Breast: Reports as per HPI and Reports wounds Neurologic Neurologic: Denies dizziness and Denies paresthesias Allergic/Immunologic Allergic/Immunologic: Denies wheezing Physical Exam General General appearance: alert and in no apparent distress Head Head exam: atraumatic, normocephalic and normal inspection Eye Eye exam: Present normal appearance, PERRL and EOMI ENT ENT exam: Present normal exam, normal oropharynx, mucous membranes moist, TM's normal bilaterally and normal external ear exam Neck Neck exam: Present normal inspection, full ROM and trachea midline; Absent meningismus or lymphadenopathy Chest Chest inspection: Present normal inspection and symmetric chest wall rise; Absent tenderness Respiratory Respiratory exam: Present normal lung sounds bilaterally; Absent respiratory distress Cardiovascular Cardiovascular exam: Present regular rate and normal rhythm; Absent JVD Abdominal Exam Abdominal exam: Present soft and normal bowel sounds; Absent distention, tenderness or guarding Extremities Exam Extremities exam: Present normal inspection, full ROM and normal capillary refill; Absent calf tenderness Back Exam Back exam: Present normal inspection; Absent tenderness Neurological Exam Neurological exam: Present alert and oriented X3 Psychiatric Psychiatric exam: Present normal affect and normal mood Skin Skin exam: Present other (there are multiple linear abrasions on her right calf area. There are 2 deeper puncture wounds. no foreign body noted. no deep tissue of tendon injury. no active bleeding noted. ) Lymphatic Lymphatic Findings: no adenopathy Medical Decision Making Medical Records Medical records reviewed: No I reviewed the patient's medical records. Screening: Per USPSTF and CDC recommendations, given the prevalence of disease in our region, it is our hospital?s policy to screen for HIV and viral Hepatitis for all patients aged 18 and over and those with ongoing risk factors. Lex Inquiry Pt receiving controlled substance: No Vital Signs: 05/14/24 18:29 Temperature 98.4 F Temperature Source Oral Pulse Rate [Left Radial] 98 H Respiratory Rate 18 Blood Pressure [Left Arm] 133/83 Blood Pressure Mean [Left Arm] 99 02 Sat by Pulse Oximetry 97 Orders (Tests/Meds): ED MEDICATIONS Generic Name Dose Route Start Last Admin Trade Name Freq PRN Reason Stop Dose Admin Tetanus/Reduced Diphtheria/Acell Pertussis 0.5 ml 05/14/24 18:32 05/14/24 18:40 Tet/Diphth/Pert-Adult 0.5ml Syringe IM 05/14/24 18:33 0.5 ml .ONCE ONE Administration Medical Decision Narrative: She does not want the puncture areas on her leg sutured. They are not large and not very deep, so i elected to agree with her and only close them with steri- strips.
[2024-05-14 19:11] VITALS: BP 133/83; PULSE 98; RESP 18; TEMP 36.9
== END 2024-05-14 19:17 | disposition home or self-care (01) ==
PROVIDERS: Emergency Provider Nurse Practitioner Family; PCP Psychiatry & Neurology Sleep Medicine
DX: S81.851A Open bite, right lower leg, initial encounter (principal)
CPT/HCPCS: 90471; 90715; 99213; G0381

== ENCOUNTER 2024-05-16 07:34 | Day surgery (SDC) | payer MEDICARE, SELFPAY ==
--- NOTE | 2024-05-13 15:09 | SUR.PREOP ---
05/13/24-attempted to call patient x2. each time calling, someone would answer and hang up. will attempt one more time on 05/14/24.
[2024-05-13 15:24] VITALS: BMI 31.6
[2024-05-16 07:57] VITALS: BP 126/74; PULSE 87; RESP 18; TEMP 36.2; O2SAT 98
[2024-05-16] MEDS: LACTATED RINGERS 1000ML 1,000 ML 50 ML IV (08:11)
--- NOTE | 2024-05-16 08:52 | P.HP_ITS ---
History of Present Illness *Admission Date: 05/16/24 *Reason for visit:: Screening/surveillance *History of present illness: Mrs. Holguin is a 69-year-old female who is here for surveillance/screening colonoscopy. Her last colonoscopy was more than 10 years ago. She has had polyps removed previously and has had 2 prior colonoscopies. The patient does have fairly frequent hemorrhoidal bleeding and some hemorrhoidal prolapse. The examination is deemed medically necessary for surveillance colonoscopy. The patient has been seen, interviewed and examined prior to the procedure by both myself and the anesthesia provider. [facility] Disclaimer: The information contained in this section may have been updated after the patient was seen, as this information can be updated by other users. Medical History (Updated 05/16/24 @ 09:02 by Kt Mayo II, MD) Chronic back pain HTN (hypertension) Surgical History H/O section H/O tubal ligation H/O colonoscopy Hx of tonsillectomy Family History Other Cancer Hypertension Social History (Updated 05/16/24 @ 08:00 by Pauline Jain RN) Smoking Status: Current every day smoker alcohol intake: never substance use type: denies use current occupational status: retired Travel in the last 8 weeks: None caffeine: Yes Other Medical History Have you received the Flu Vaccine for this season: No Have you received the Pneumonia Vaccine: No Review of Systems Review of Systems Review of systems (narrative): Negative *Cardiovascular Comments: Negative *Gastrointestinal Comments: Negative *Genitourinary Comments: Negative *Musculoskeletal Comments: Negative *Neurologic Comments: Negative Meds Home Medications and Allergies Home Medications ?Medication ?Instructions ?Recorded ?Confirmed ?Type sodium sul 1.479 gram-potas ch See Rx Instructions PO PER PKG DIR 05/07/24 05/13/24 Rx 0.188 gram-magnes sul 0.225 gram colonscopy #24 tabs tablet (Sutab) clindamycin HCl 300 mg capsule 300 mg PO Q8H 7 days #21 caps 05/14/24 05/16/24 Rx mupirocin 2 % topical ointment 1 applic topical TID 7 days #15 05/14/24 05/16/24 Rx grams sulfamethoxazole 800 1 tab PO BID 7 days #14 tabs 05/14/24 05/16/24 Rx mg-trimethoprim 160 mg tablet (Bactrim DS) New Prescriptions to Start Prescriptions: Allergies Allergy/AdvReac Type Severity Reaction Status Date / Time Penicillins Allergy Unknown Verified 05/16/24 07:54 allergy reaction Exam Data for Last 24 hours Vital signs and Labs for Last 24 Hours: Temp Pulse Resp BP Pulse Ox O2 Del Method 97.1 F L 87 18 126/74 98 Room Air 05/16/24 07:57 05/16/24 07:57 05/16/24 07:57 05/16/24 07:57 05/16/24 07:57 05/16/24 07:57 I & O for Last 24 hours: Intake & Output 05/13/24 05/14/24 05/15/24 05/16/24 23:59 23:59 23:59 23:59 Weight 196 lb *Routine HEENT Exam Head: Present normocephalic Eye: Present EOMI and PERRL ENT: Present mucous membranes moist *Routine Neck Exam Neck: Present supple *Routine Respiratory Exam Respiratory: Present CTA bilaterally *Routine Cardiovascular Exam Cardiovascular: Present RRR *Routine Abdominal Exam Abdominal: Present soft and normoactive bowel sounds; Absent tenderness *Routine Rectal Exam Rectal:: deferred *Routine Genitalia Exam Genitalia:: deferred *Routine Extremities Exam Extremities: Absent cyanosis, clubbing or edema *Routine Skin Exam Skin: Present warm; Absent rash *Routine Neurological Exam Neurological: Present alert and oriented X3 Assessment and Plan *Assessment and plan (1) Screening for colon cancer: Status: Acute Category: Medical Code(s): Z12.11 - Encounter for screening for malignant neoplasm of colon (2) Personal history of colon polyps, unspecified: Status: Acute Category: Medical Code(s): Z86.0100 - Personal history of colon polyps, unspecified (3) Bleeding internal hemorrhoids: Status: Acute Category: Medical Code(s): K64.8 - Other hemorrhoids (4) Internal prolapsed hemorrhoids: Status: Acute Category: Medical Code(s): K64.8 - Other hemorrhoids Plan A/P: 1. Personal history of colon polyps and last colonoscopy more than 10 years ago is the preprocedural diagnosis. The patient will be anesthetized/sedated using MAC sedation. The patient has been seen and examined. Cardiac and lung assessment prior to the examination is stable. Proceed with planned surveillance colonoscopy. She does have hemorrhoidal bleeding and prolapse and we may consider hemorrhoid treatment (banding or ablation)
--- NOTE | 2024-05-16 08:57 | P.PNANES_ITS ---
[facility] Disclaimer: The information contained in this section may have been updated after the patient was seen, as this information can be updated by other users. Medical History Chronic back pain HTN (hypertension) Surgical History H/O section H/O tubal ligation H/O colonoscopy Hx of tonsillectomy Family History Other Cancer Hypertension Social History (Updated 05/16/24 @ 08:00 by Pauline Jain RN) Smoking Status: Current every day smoker alcohol intake: never substance use type: denies use current occupational status: retired Travel in the last 8 weeks: None caffeine: Yes [facility] Anesthesia Checklist Patient Identification Patient Identification: Arm Band Structural Data Admitted From: Home Planned Operative Procedure/s: Colonoscopy Consent for Planned Operative Procedure(s) Verified: Yes Verified Documents: Surgical Consent and History and Physical NPO Status Verified Time NPO: 07:00 (finished prep) Additional verifications Anesthesia Reactions: No Hx Blood Transfusions: No Blood Transfusion Reaction: No Airway Assessment Mallampati Score:: Class II C-Spine Mobility Assessed: Yes TMJ Mobility Assessed: Yes Dentition: Dentures-good fit (removed) Neurological Assessment Level of Consciousness: Awake, Alert and Appropriate Anesthesia Plan Anesthesia Risk discussed: Yes Anesthesia Plan: Verified ASA Class: II Anesthesia Type: MAC
[2024-05-16 09:02] VITALS: O2SAT 100
--- NOTE | 2024-05-16 09:03 | HMH.PROCNOTE ---
[facility] Procedure Note Date: 05/16/24 Time: 09:19 Procedure Note:: Colonoscopy Procedure Report: Colonoscopy with cold snare polypectomy and hemorrhoid band ligation Endoscopist: Kt Mayo II, MD Referring physician: Luis Shannon MD Date of Procedure: May 16, 2024 Equipment: Olympus 190 variable stiffness pediatric colonoscope Sedation: MAC sedation Indication: Mrs. Holguin is a 69-year-old female who is here for follow-up screening/surveillance colonoscopy. She has had 2 prior colonoscopy at which time polyps were removed. Her last colonoscopy was more than 10 years ago. She reports no abdominal pain, weight loss, change in her bowel habits or family history of colon cancer. She does take Metamucil daily. She does have intermittent and sometimes frequent bleeding internal hemorrhoids with blood in the commode and hemorrhoid prolapse. Procedure: Prior to the procedure, a history and physical exam was performed, and patient's medications and allergies were reviewed. The risks, benefits and alternatives of the sedation and procedure were discussed with the patient. All questions were answered and informed consent was obtained. The patient was brought to the procedure room. Patient identification and proposed procedure were verified by the physician and the nurse. The patient was placed in a left lateral decubitus position and the scope was passed under direct vision. Throughout the procedure, the patient's blood pressure, pulse, and oxygen saturations were monitored continuously. The colonoscopy was accomplished without difficulty. The patient tolerated the procedure well. Findings: On digital rectal examination there was normal rectal tone. There were no external hemorrhoids. The colonoscope was introduced through the anal canal to the rectum and advanced to the cecum. The ileocecal valve and appendiceal orifice were identified. The scope was advanced a short distance into the ileum which appeared grossly normal. The scope was then withdrawn into the colon. There were 4 diminutive polyps (ascending x 3 (3, 4 and 4 mm) and sigmoid x 1 (6 mm)). These were all removed via cold snare polypectomy. The remaining cecum, ascending and transverse colon and mucosa were grossly normal. There were minimally scattered shallow diverticuli within the sigmoid colon (LEFT colon). The rectum itself was normal. Upon retroflexion within the rectum there were 2-3 internal hemorrhoids. 3 columns of hemorrhoids were banded using 3 bands with excellent ligation effect. The preparation was excellent throughout with [place] Preparation Score of 9. The cecal time was 12 minutes. Impression: 1. Diminutive colonic polyps x 4 2. Very mild sigmoid diverticulosis 3. Grade 2-3 internal hemorrhoids status post band ligation x 3 Plan: I will follow-up the polyp histology and recommend repeat surveillance colonoscopy again in 5 to 7 years based upon the pathology. I would encourage continuation of psyllium Metamucil fiber supplementation on a maintenance basis.
[2024-05-16 09:29] VITALS: BP 110/60; PULSE 82; RESP 17; TEMP 36.6; O2SAT 96
[2024-05-16 09:39] VITALS: BP 112/68; PULSE 77; RESP 18; O2SAT 97
[2024-05-16 09:49] VITALS: BP 116/71; PULSE 74; RESP 18; O2SAT 97
[2024-05-16 09:59] VITALS: BP 114/73; PULSE 75; RESP 18; O2SAT 97
== END 2024-05-16 10:13 | disposition home or self-care (01) ==
PROVIDERS: PCP Family Medicine; Visit Provider Internal Medicine Gastroenterology
PROC: (CPT 45385; principal; 2024-05-16 09:00)
DX: Z12.11 Encounter for screening for malignant neoplasm of colon (principal); Z86.0100 Personal history of colon polyps, unspecified; K64.8 Other hemorrhoids; K63.5 Polyp of colon; K57.30 Diverticulosis of large intestine without perforation or abscess without bleeding
CPT/HCPCS: 45385; 45398; 88305; C1889; J7120

== ENCOUNTER 2024-10-21 09:00 | Outpatient (RCR) | payer MEDICARE, SELFPAY ==
--- NOTE | 2024-10-07 11:47 | HMH.PTOPWND ---
Rehab Outpt Wound Evaluation Rehab OP Wound Evaluation Start: 10/07/24 11:36 Freq: Status: Active Protocol: Document 10/07/24 11:36 ASHA (Rec: 10/07/24 11:47 PHORART [id number]) E-signed By Monroe Albrecht, PT Subjective/History History History This is the initial PT wound care eval for Julia Holguin, 69 yowf who presents with R lateral lower leg wound present x ~ 4 mos S/P dog bite. She reports two of her dogs were fighting and she tried to break them up and accidently got bitten. She reports she has healed some, but not completely and is usually a quick healer. She reports no current discomfort, but does have intermittent sharp pains in the area. She reports she has been cleaning her wound daily with vinegar and saline and re-dressing the wound. She reports no significant PMH. Subjective Subjective Current pain is 0/10, at worst is 8/10 intermittently. She presents with fairly healthy wound with minimal slough noted, but does have more depth than she realized. 2/4 TTP in the milvia-wound skin with expected milvia-wound erythema. Wound Eval Wound Right Lateral Carvajal Wound Type dog bite Is This a Chronic Yes Wound Wound Length (cm) 2.1 Wound Width (cm) 1.5 Wound Depth (cm) 1.1 Wound Bed Appearance Beefy Red,Yellow Percentage 90 Granulated (%) Percentage of Slough 10 (%) Wound Margins Well Defined Description Undermining Position 2-3 o'clock Undermining Depth ( 0.5 cm) Surrounding Tissue [place],Bright Red Appearance Edema Type Pitting Edema Degree 1+ Query Text:1+ Trace, Barely Detectable, Rebound 15-30 seconds 2+ Moderate, Slight Indentation, Rebound 10-20 seconds 3+ Deep, Deeper Indentation, Rebound > 30 seconds 4+ Very Deep, Rebound > 60 seconds Drainage Description Serosanguineous Drainage Amount Small Wound Topical Saline Irrigant Solution/Irrigant Primary Dressing Silver Dressing Comment opticell Ag Wound Secondary Composite Dressing Type Comment optifoam gentle border Wound Debridement Forceps,Gauze,Mechanical Method Wound Debridement Minimal Amount of Tissue Removed Dressing Change Tolerated Well Patient Tolerance Bhakta-Roy Wound Assessment Tool Assessment Wound size 1=Length x Width <4 sq cm Wound depth 3=Full thickness skin loss involving damage or necrosis of Wound edges 3=Well-defined, not attached to wound base Wound undermining 2=Undermining <2 cm in any area Necrotic tissue type 2=White/hansen non-viable tissue &/or non-adherent yellow slough Necrotic tissue 2=<25% of wound bed covered amount Exudate type 3=Serosanguineous: thin, watery, pale red/pink Exudate amount 3=Small Skin color 2=Bright red &/or blanches to touch surrounding wound Peripheral tissue 4=Pitting edema extends <4 cm around wound edema Peripheral tissue 1=None present induration Granulation tissue 2=Bright, beefy red;75% to 100% of wound filled &/or tissue overgrowth Epithelialization 5= < 25% wound covered Wound assessment 33 total score Wound Problems/Impairments Impairments Problems/ Palpation Tenderness,Impaired Shower/Bathing,Impaired Impairmments Household Care,Wound Care Needs,Subjective C/O Pain, Impaired Self Care/Self Management Prognosis Rehab Potential Good Comment Skilled therapy services are indicated to reduce overall wound size and improve healing time in order to return pt to [facility] with all ADLs. Clinical Impression Consistent with Yes Diagnosis Short Term Goals Number of Weeks 4 Decreased Palpation Yes: 1/4 R lower leg Tenderness Decrease Wound Area Yes: by 25% Decrease Subjective Yes: 6/10 at worst R lower leg C/O Pain [employer] Goals Number of Weeks 8 Decreased Palpation Yes: 0/4 R lower leg Tenderness Decrease Wound Area Yes: by 75% Decrease Subjective Yes: 3/10 at worst R lower leg C/O Pain Patient to be Ind w/ Yes Home Wound Care/ Dressing Changes Outpatient Therapy Plan of Care Treatment Plan May Include Therapeutic Exercise Yes Including Home Exercise Program Manual Therapy Yes Techniques Therapeutic Yes Activities to Return to Previous Functional/Work Level ADL/Self Care Yes Education Wound Care Yes Eval/Re-Eval Yes Frequency Times per week 1 Duration Number of Weeks 8 Addendums This patient is a No candidate for social or vocational rehab ? Patient/Guardian Yes verbally acknowledges understanding of treatment program and consents to further treatment? Patient/Guardian Yes verbally acknowledges understanding of diagnosis, prognosis and goals for treatment? Eval Complexity PT Charges 12398 - Moderate Complexity PHYSICIAN CERTIFICATION: I certify the specified therapy services for Julia Holguin are required, authorized, and reviewed every 30 days.
== END 2024-10-21 23:59 | disposition home or self-care (01) ==
LOC: PT 09:00
PROVIDERS: PCP Family Medicine; Visit Provider Physician Assistant
DX: S81.801D Unspecified open wound, right lower leg, subsequent encounter (principal); W54.0XXD Bitten by dog, subsequent encounter
CPT/HCPCS: 97162; 97597

== ENCOUNTER 2024-11-13 09:00 | Outpatient (RCR) | payer MEDICARE, SELFPAY ==
--- NOTE | 2024-11-06 10:48 | [facility].RHREAS ---
Rehab Reassessment Rehab OP Re-assessment Start: 10/29/24 11:37 Freq: Status: Active Protocol: Document 11/06/24 10:41 ASHA (Rec: 11/06/24 10:47 PHOELEUTERIO [id number]) E-signed By Monroe Albrecht, PT [facility] Wound Assessment Tool Assessment Wound size 1=Length x Width <4 sq cm Wound depth 3=Full thickness skin loss involving damage or necrosis of Wound edges 3=Well-defined, not attached to wound base Wound undermining 1=None present Necrotic tissue type 1=Non visible Necrotic tissue 1=None visible amount Exudate type 2=Bloody Exudate amount 3=Small Skin color 1=[place] or normal for ethnic group surrounding wound Peripheral tissue 1=No swelling or edema edema Peripheral tissue 1=None present induration Granulation tissue 2=Bright, beefy red;75% to 100% of wound filled &/or tissue overgrowth Epithelialization 2=75% to < 100% wound covered &/or epithelial tissue extends > 0.5cm Wound assessment 22 total score Rehab Re-assessment Subjective Subjective Pt reports only a small area at the superior border of her wound remains tender to palpation. Overall she feels much better. Objective Objective Notes R [place] wound: L= 0.9 cm, W= 0.8 cm, D= 0.8 cm. Undermining noted at 2 o'clock 0.4 cm. Wound has healed by 77% surface area vs IE. Assessment Progress Assessment Progressing as Expected Assessment Notes Pt has shown significant overall reduction of wound surface area since initial evaluation. However, she continues to have undermining and increased overall wound depth which requires skilled therapy attention to improve wound healing and return pt to PLOF. Patient goals met ST/ LT/4 Revised Goals New LTG: Pt will exhibit 100% total wound surface area healed in 4 weeks. Plan Plan Continue per initial POC with above added mcc goal. Frequency of Therapy 1 Duration of therapy 4 Time and Billing Re-Eval Time 11 Re-Eval Billing 0 Units Charge for PT No reassessment? PHYSICIAN CERTIFICATION: I certify the specified therapy services for Julia Holguin are required, authorized, and reviewed every 30 days.
== END 2024-11-13 23:59 | disposition home or self-care (01) ==
LOC: PT 09:00
PROVIDERS: PCP Family Medicine; Visit Provider Physician Assistant
DX: S81.801D Unspecified open wound, right lower leg, subsequent encounter (principal)
CPT/HCPCS: 97597

== ENCOUNTER 2024-11-27 08:54 | Outpatient (RCR) | payer MEDICARE, SELFPAY | END 2024-11-27 23:59 | disposition home or self-care (01) | LOC: PT 08:54 | PROVIDERS: PCP Family Medicine; Visit Provider Physician Assistant | DX: S81.801D Unspecified open wound, right lower leg, subsequent encounter (principal); X58.XXXD Exposure to other specified factors, subsequent encounter ==